=== PATIENT | male | born 1975 | race Native Hawaiian/Other Pacific Islander ===

== ENCOUNTER 2020-03-31 06:32 | Emergency (ER) | payer OTHER ==
[~2020-03-31] VITALS: Ht 165.1 cm; Wt 54.4 kg
[2020-03-31 06:36] VITALS: BP 141/88
--- NOTE | 2020-03-31 07:36 | NUR ---
covid 19 swab done and sent to lab
--- NOTE | 2020-03-31 07:37 | NUR ---
Patient discharged to home in stable condition. Written and verbal after care instructions given. Patient verbalizes understanding of instruction.
== END 2020-03-31 07:37 | disposition home or self-care (01) ==
LOC: ER 06:36
DX: Z03.818 Encounter for observation for suspected exposure to other biological agents ruled out (principal)
CPT/HCPCS: 99283; U0003

== ENCOUNTER 2020-04-28 22:18 | Emergency (ER) | payer OTHER ==
[~2020-04-28] VITALS: Ht 165.1 cm; Wt 54.4 kg
[2020-04-28 22:21] VITALS: BP 119/75
--- NOTE | 2020-04-28 22:35 | NUR ---
covid swab and sent to lab
--- NOTE | 2020-04-28 22:45 | NUR ---
Patient discharged to home in stable condition. Written and verbal after care instructions given. Patient verbalizes understanding of instruction. Pt ambulatory with a steady gait
== END 2020-04-28 22:47 | disposition home or self-care (01) ==
LOC: ER 22:19
DX: Z11.59 Encounter for screening for other viral diseases (principal)
CPT/HCPCS: 99283; C9803; U0003

== ENCOUNTER 2020-06-03 22:04 | Emergency (ER) | payer OTHER ==
[~2020-06-03] VITALS: Ht 165.1 cm; Wt 54.4 kg
[2020-06-03 22:09] VITALS: BP 124/62
--- NOTE | 2020-06-03 22:18 | NUR ---
COVID SWAB COLLECTED AND SENT TO LAB.
== END 2020-06-03 22:18 | disposition home or self-care (01) ==
LOC: ER 22:04
DX: Z11.59 Encounter for screening for other viral diseases (principal)
CPT/HCPCS: 99283; C9803; U0003

== ENCOUNTER 2020-06-12 22:37 | Emergency (ER) | payer OTHER ==
[~2020-06-12] VITALS: Ht 165.1 cm; Wt 58.5 kg
[2020-06-12 22:38] VITALS: BP 134/61
== END 2020-06-12 22:56 | disposition home or self-care (01) ==
LOC: ER 22:37
DX: Z20.828 Contact with and (suspected) exposure to other viral communicable diseases (principal)
CPT/HCPCS: 99283; C9803; U0003

== ENCOUNTER 2020-06-26 22:27 | Emergency (ER) | payer OTHER ==
[~2020-06-26] VITALS: Ht 165.1 cm; Wt 58.5 kg
[2020-06-26 22:28] VITALS: BP 132/64
--- NOTE | 2020-06-26 22:38 | NUR ---
Patient discharged to home in stable condition. Written and verbal after care instructions given. Patient verbalizes understanding of instruction.
--- NOTE | 2020-06-26 22:38 | NUR ---
COVID SWAB COLLECTED AND SENT TO THE LAB.
== END 2020-06-26 22:43 | disposition home or self-care (01) ==
LOC: ER 22:27
DX: Z20.828 Contact with and (suspected) exposure to other viral communicable diseases (principal)
CPT/HCPCS: 99283; C9803; U0003

== ENCOUNTER 2020-07-15 22:30 | Emergency (ER) | payer OTHER ==
[~2020-07-15] VITALS: Ht 165.1 cm; Wt 58.5 kg
[2020-07-15 22:37] VITALS: BP 129/88
== END 2020-07-15 22:44 | disposition home or self-care (01) ==
LOC: ER 22:32
DX: Z20.828 Contact with and (suspected) exposure to other viral communicable diseases (principal)
CPT/HCPCS: 99283; C9803; U0003